=== PATIENT | female | born 1965 | race Caucasian/White ===

== ENCOUNTER 2019-12-28 20:09 | Emergency (ER) | payer SELFPAY ==
--- NOTE | 2019-12-28 20:33 | ER Document Report ---
ED Medical Screen (RME) - General Chief Complaint: High Blood Pressure Stated Complaint: ELEVATED BLOOD PRESSURE/BURNING SENSATION IN LEFT Time Seen by Provider: 12/28/19 20:24 Mode of Arrival: Wheelchair Information source: Patient Notes: Patient is a 48-year-old female presenting to the emergency department concern for elevated blood pressure and not feeling right. Patient reports that over the last few days she has just generally not been feeling well. She has noted that her blood pressure has been significantly elevated at home 200/100 systolic. She does report having a history of high blood pressure at one point, states the medication they put her on made her feel sick so she stopped taking it. She also reports having history of MS and hypothyroidism however she has not seen a doctor in over a year and does not take any medications. Patient denies any chest pain, shortness of breath, headache, nausea, vomiting. Patient states she feels very anxious. She is also complaining of a skin rash to her bilateral hands and left lower extremity. I have greeted and performed a rapid initial assessment of this patient. A comprehensive ED assessment and evaluation of the patient, analysis of test results and completion of the medical decision making process will be conducted by additional ED providers. I have specifically instructed the patient or family members with the patient to immediately return to any nursing staff should anything change in the patient's condition or with their chief complaint. - Related Data Allergies/Adverse Reactions: ciprofloxacin [From Cipro] Allergy (Verified 12/28/19 20:29) lidocaine Allergy (Verified 12/28/19 20:29) Past Medical History - Social History Frequency of alcohol use: None Drug Abuse: None Past Surgical History: Reports: Hx Appendectomy, Hx Cholecystectomy, Hx Tonsillectomy Physical Exam - Vital signs Vitals: Temp Pulse Resp BP Pulse Ox 98.6 F 118 H 16 190/125 H 99 12/28/19 20:17 12/28/19 20:17 12/28/19 20:17 12/28/19 20:17 12/28/19 20:17 Course - Vital Signs Vital signs: Temp Pulse Resp BP Pulse Ox 98.6 F 118 H 16 190/125 H 99 12/28/19 20:25 12/28/19 20:17 12/28/19 20:17 12/28/19 20:17 12/28/19 20:17
[2019-12-28 21:08] LABS: ABSOLUTE BASOPHILS # (AUTO) 0.1 10^3/uL (0.0-0.2); ABSOLUTE EOSINOPHILS # (AUTO) 0.3 10^3/uL (0.0-0.6); ABSOLUTE LYMPHOCYTES (AUTO) 2.1 10^3/uL (0.5-4.7); ABSOLUTE MONOCYTES (AUTO) 0.8 10^3/uL (0.1-1.4); ABSOLUTE NEUT (AUTO) 8.2 10^3/uL (1.7-8.2); BASOPHILS % (AUTO) 0.7 % (0-2); EOSINOPHILS % (AUTO) 2.6 % (0-6); HEMATOCRIT 45.6 % (36.0-47.0); HEMOGLOBIN 15.7 g/dL (12.0-15.5); LYMPHOCYTES % (AUTO) 18.1 % (13-45); MEAN CORPUSCULAR HEMOGLOBIN 28.5 pg (27.0-33.4); MEAN CORPUSCULAR HGB CONC 34.4 g/dL (32.0-36.0); MEAN CORPUSCULAR VOLUME 83 fl (80-97); MONOCYTES % (AUTO) 7.1 % (3-13); PLATELET COUNT 259 10^3/uL (150-450); RED BLOOD COUNT 5.49 10^6/uL (3.72-5.28); RED CELL DISTRIBUTION WIDTH 13.9 % (11.5-14.0); SEGMENTED NEUTROPHILS % (AUTO) 71.5 % (42-78); TOTAL CELLS COUNTED % (AUTO) 100 %; WHITE BLOOD COUNT 11.4 10^3/uL (4.0-10.5)
[2019-12-28] MEDS ORDERED: HYDRALAZINE HCL INJ/PF 20 MG/1 ML SDV IV ONE (21:21)
[2019-12-28 21:27] LABS: ALBUMIN 4.9 g/dL (3.5-5.0); ALKALINE PHOSPHATASE 82 U/L (38-126); ANION GAP 8 (5-19); ASPARTATE AMINO TRANSFERASE 50 U/L (14-36); BILIRUBIN,TOTAL 1.1 mg/dL (0.2-1.3); BLOOD UREA NITROGEN 14 mg/dL (7-20); CALCIUM 9.7 mg/dL (8.4-10.2); CARBON DIOXIDE 26 mmol/L (22-30); CHLORIDE 103 mmol/L (98-107); GLUCOSE 132 mg/dL (75-110); POTASSIUM 3.6 mmol/L (3.6-5.0); TOTAL PROTEIN 7.8 g/dL (6.3-8.2)
--- NOTE | 2019-12-28 21:46 | RADIOLOGY REPORT (SQ) ---
EXAM DESCRIPTION: XR CHEST 1 VIEW COMPLETED DATE/TME: 12/28/2019 20:30 CLINICAL HISTORY: 48 years, Female, HTN, DOES NOT FEEL RIGHT COMPARISON: None. NUMBER OF VIEWS: One TECHNIQUE: Single frontal view of the chest was obtained portably LIMITATIONS: None. FINDINGS: Cardiac and mediastinal contours are normal. Lungs are clear. No pleural effusion or pneumothorax. IMPRESSION: No acute disease. copyright 2010 [employer]- All Rights Reserved
[2019-12-28] MEDS ORDERED: LORAZEPAM 1 MG TABLET PO ONE (21:52)
--- NOTE | 2019-12-28 22:20 | ER Document Report ---
ED General - General Chief Complaint: High Blood Pressure Stated Complaint: ELEVATED BLOOD PRESSURE/BURNING SENSATION IN LEFT Time Seen by Provider: 12/28/19 20:24 Mode of Arrival: Wheelchair - HPI Notes: Patient is a 48-year-old female with a history of hypertension, multiple sclerosis, anxiety with panic attacks, who presents to the emergency department for evaluation of elevated blood pressure, just not feeling well. She has come planes of a burning sensation around her left elbow intermittently for the last several days. She states the last 1 or 2 seconds at a time. Is happened about 3 or 4 times daily. Is not reliably brought about by anything, nothing seems to make it go away. She denies any associated symptoms. She states today she checked her blood pressure frequently, it was reading about 160/100. She states that it has been steadily elevated for the rest of the day. The patient admits she has been under a significant amount of stress. She is currently moving. She states she does not have a primary care provider here, but she is established with a neurologist as well as her primary care doctor to start seeing [facility]. She states she feels safe at home and in her relationship. She states that she has had just a lot of increased stressors. She is recently lost her dog. She denies any suicidal or homicidal ideation. No visual or auditory hallucination. She has had no chest pain. No shortness of breath. While here in the emergency department, she states she became more and more anxious over the fact that her blood pressure was elevated. At one point she states she knew she was "having a panic attack." Her heart rate went up to the 130s. Her blood pressure continued to elevate. She states this is how she feels with a panic attack, and requests something for it. She used to take Xanax, but weaned herself off of it, states is been several years since she had any. - Related Data Allergies/Adverse Reactions: ciprofloxacin [From Cipro] Allergy (Verified 12/28/19 20:29) lidocaine Allergy (Verified 12/28/19 20:29) Past Medical History - General Information source: Patient - Social History Smoking Status: Never Smoker Frequency of alcohol use: None Drug Abuse: None Family History: DM, Malignancy, Other - No history of premature CAD, no history of DVT/PE Patient has homicidal ideation: No - Past Medical History Cardiac Medical History: Reports: Hx Hypertension Neurological Medical History: Reports: Other - Multiple sclerosis Endocrine Medical History: Reports: Hx Hypothyroidism Psychiatric Medical History: Reports: Hx Anxiety Past Surgical History: Reports: Hx Appendectomy, Hx Cholecystectomy, Hx Tonsillectomy Review of Systems - Review of Systems Musculoskeletal: See HPI Neurological/Psychological: See HPI -: Yes All other systems reviewed and negative Physical Exam - Vital signs Vitals: Temp Pulse Resp BP Pulse Ox 98.6 F 118 H 16 190/125 H 99 12/28/19 20:17 12/28/19 20:17 12/28/19 20:17 12/28/19 20:17 12/28/19 20:17 - Notes Notes: I was called in to the room to see the patient in the midst of what was identified by the patient has a panic attack. She appears extremely anxious. She is tearful. Her breath is tremulous. She makes good eye contact, is cooperative with examiner. Vital signs reviewed, please refer to chart. Head is normocephalic, atraumatic. Pupils equal round, reactive to light. Neck is supple without meningismus. Heart is tachycardic with normal S1, S2. Lungs are clear to auscultation bilaterally. Abdomen is soft, nontender, normoactive bowel sounds throughout. Extremities without cyanosis, clubbing. Posterior calves are nontender. Peripheral pulses are equal. She has 1+ pitting edema to the mid tibia. She has some chronic appearing skin changes with small vesicles, consistent with skin changes associated with edema. Skin is warm and dry. Patient is awake, alert, neurological exam is nonfocal. Examination of the left upper extremity is no obvious deformity. Neurovascularly intact distally. Course - Re-evaluation Re-evalutation: 12/28/19 22:19 Patient presents to the emergency department for evaluation. Laboratory investigations and EKG are obtained. She was given a treatment for her blood pressure, but the patient became extremely anxious and her blood pressure became elevated. She became markedly tachycardic. I suspect this is all secondary to anxiety. She is given Ativan. She is given reassurance that thus far her laboratory investigations look excellent. She has no PE risk factors. She is obese with a history of hypertension, but has no other significant CAD risk factors, and her left arm pain would certainly be atypical for an anginal equivalent. Her first troponin is undetectable. Awaiting second troponin and response to Ativan. We will continue to monitor. 12/29/19 00:34 Second troponin was still well within the negative range. Patient had some EKG changes when her heart rate was in the 130s, but otherwise everything looks unremarkable. Her symptoms entirely abated after some Ativan, and her blood pressure was well within normal limits. We talked at length about stress and its effects on blood pressure. I told her she needs to keep an eye on her blood pressures at home. She is going to keep a record of these numbers, take them when she follows up with a new primary care provider in [place]. She is otherwise completely asymptomatic. She is to return to the emergency department with worsening or new concerning symptoms of any sort. 12/29/19 00:51 Nursing was preparing to discharge the patient when her heart rate went back up into the 130 range. Remains sinus. The patient's blood pressure remains normal. She is ordered some IV fluids. She has absolutely no symptoms associated with this. We will send the patient for a CT angiogram of the chest to rule out pulmonary embolus. 12/29/19 02:00 I do not see any evidence of large vessel embolus on CT angiogram. Awaiting but do suspect this is all secondary to anxiety at this time. Patient's heart rate is currently in the 90s. If CT angiogram is unremarkable, will send with same plan as prior, referral for follow-up. 12/29/19 02:05 I did discuss finding of CT angiogram, including goiter and splenic finding, with patient. - Vital Signs Vital signs: Temp Pulse Resp BP Pulse Ox 98.6 F 118 H 17 124/77 98 12/28/19 20:25 12/28/19 20:17 12/29/19 01:10 12/29/19 00:31 12/29/19 01:10 - Laboratory Result Diagrams: 12/28/19 20:50 12/28/19 20:50 Laboratory results interpreted by me: 12/28/19 12/28/19 20:50 20:50 WBC 11.4 H RBC 5.49 H Hgb 15.7 H Glucose 132 H AST 50 H ALT 64 H - Diagnostic Test Radiology reviewed: Reports reviewed Radiology results interpreted by me: 12/28/19 22:20 Chest X-Ray 12/28/19 20:30 IMPRESSION: No acute disease. copyright 2010 [employer]- All Rights Reserved 12/29/19 02:04 Chest X-Ray 12/28/19 20:30 IMPRESSION: No acute disease. copyright 2010 [employer]- All Rights Reserved Please see reports for CT angiogram findings. - EKG Interpretation by Me Additional EKG results interpreted by me: 12/28/19 22:21 Sinus tachycardia rate of 105 bpm, multifocal PVCs noted. Left axis deviation. No ST elevation concerning for infarction, but she does have lateral ST changes consistent with LVH with strain versus ischemia. No old studies available for comparison. Repeat EKG shows sinus tachycardia with a rate of 135 bpm, worsened ST depression in the lateral leads concerning for rate related ischemia. Discharge - Discharge Clinical Impression: Anxiety attack, Elevated blood pressure reading without diagnosis of hypertension Condition: Stable Disposition: HOME, SELF-CARE Instructions: High Blood Pressure ([facility]), Panic Attack ([facility]) Additional Instructions: Please continue to keep an eye on your blood pressure. Keep a log of what your blood pressure runs, and bring this with you when you follow-up with a new primary care provider. Recognize that this is a stressful time, practice relaxation techniques. Try to stay hydrated. Keep legs elevated for edema, consider compression stockings. Your CT scan failed to show any significant blood clots or other findings with your heart and lungs. There is an enlargement of your thyroid, likely secondary to a goiter, and a small finding on your spleen, likely just a cyst. These findings should both be followed up by your primary care provider, preferably with thyroid ultrasound and repeat imaging of your abdomen. If you develop worsening or new concerning symptoms of any sort, return immediately to the emergency department for reevaluation.
[2019-12-28] MEDS ORDERED: MAG HYDROX/AL HYDROX/SIMETH SUSP 30 ML UDCUP PO ONE (23:48)
[2019-12-29] MEDS ORDERED: NORMAL SALINE 1000 ML 1,000 ML IV ONE (00:50)
--- NOTE | 2019-12-29 02:02 | RADIOLOGY REPORT (SQ) ---
EXAM DESCRIPTION: CT CHEST ANGIOGRAPHY WITHOUT THEN WITH IV CONTRAST COMPLETED DATE/TME: 12/29/2019 00:51 CLINICAL HISTORY: 48 years Female, tachycardia, eval for PE Comparison: CR, 12/28/19 Technique: IV contrast. Coronal and sagittal reformat. 3d reconstruction. This exam was performed according to our departmental dose-optimization program, which includes automated exposure control, adjustment of the mA and/or kV according to patient size and/or use of iterative reconstruction technique.[facility]: Dose Right [facility]: CareDose [facility]: Dose Right [facility]: Teradose 4D [facility]: PrimeStone LIMITATIONS: Quality of pulmonary arteriogram: Suboptimal. Findings: Diffusely enlarged probable thyroid goiter partially imaged with poorly defined 2.1 cm low-attenuation left thyroid component. Recommend thyroid ultrasound. Hepatic steatosis. Splenic index 597. Probably benign 0.9 cm lesion of the spleen may indicate a splenic hemangioma not definitively characterized. No pulmonary embolus. No right ventricular strain. Clear lungs. Inferior neck, axillae, mediastinum, airway, lymphatics, heart, vasculature, upper abdomen, and musculoskeleton appear otherwise unremarkable. Impression: 1. Diffusely enlarged probable thyroid goiter partially imaged with poorly defined 2.1 cm low-attenuation left thyroid component. Recommend thyroid ultrasound. 2. Hepatic steatosis. 3. Mild splenomegaly. 4. Probably benign 0.9 cm lesion of the spleen may indicate a splenic hemangioma not definitively characterized. 5. No pulmonary embolus. No acute cardiopulmonary findings.
[2019-12-29 02:09] VITALS: BP 180/94
--- NOTE | 2019-12-29 08:49 | EKG REPORT ---
SEVERITY:- ABNORMAL ECG - SINUS TACHYCARDIA PROBABLE LEFT ATRIAL ABNORMALITY LEFT AXIS DEVIATION BORDERLINE R WAVE PROGRESSION, ANTERIOR LEADS REPOL ABNRM SUGGESTS ISCHEMIA, LATERAL LEADS : Confirmed by: Chris Mathias MD 29-Dec-2019 08:48:44
--- NOTE | 2019-12-30 21:14 | EKG REPORT ---
SEVERITY:- ABNORMAL ECG - SINUS TACHYCARDIA VENTRICULAR PREMATURE COMPLEX ABERRANT COMPLEX, POSSIBLY SUPRAVENTRICULAR LEFT AXIS DEVIATION LEFT VENTRICULAR HYPERTROPHY : Confirmed by: Chris Mathias MD 30-Dec-2019 21:13:45
== END 2019-12-29 02:12 | disposition home or self-care (01) ==
LOC: EDBD 20:09 → ER 20:09
DX: F41.9 Anxiety disorder, unspecified (principal); R03.0 Elevated blood-pressure reading, without diagnosis of hypertension; G35 Multiple sclerosis; Z88.8 Allergy status to other drugs, medicaments and biological substances
CPT/HCPCS: 93005; 99284; 96361; 96374; 36415; 84443; 85025; 80053; 84484; 71045; 71275; 93010; J0360; J7030